=== PATIENT | male | born 1955 | race Caucasian/White ===

== ENCOUNTER 2021-08-25 19:32 | Emergency (ER) | payer MEDICARE, SELFPAY ==
[2021-08-25 19:44] VITALS: BP 128/83; PULSE 80; RESP 16; TEMP 36.6; O2SAT 100
--- NOTE | 2021-08-25 20:54 | ED.SKABFB ---
HPI - Skin/Abscess/Foreign Bdy General Chief complaint: Skin/Abscess/Foreign Body Stated complaint: Rash Source: patient and RN notes reviewed Limitations: no limitations History of Present Illness HPI narrative: The patient, who is on several medications, presents with skin eruption. Patient states he was doing yard work about a week ago and has developed a pink, itchy, occasionally weeping rash on extremities . Symptoms are mild, unrelieved with OTC preparations; he requests steroid injection, so explained oral bioavailability is similar. Related Data Home Medications Medication Instructions Recorded Confirmed albuterol sulfate INHALATION 08/25/21 allopurinol 08/25/21 clopidogrel 08/25/21 colchicine mg 08/25/21 gabapentin 08/25/21 lisinopril 08/25/21 tramadol mg 08/25/21 umeclidinium [Incruse Ellipta] INHALATION 08/25/21 Allergies Allergy/AdvReac Type Severity Reaction Status Date / Time No Known Allergies Allergy Verified 08/25/21 20:15 Review of Systems Review of Systems: General/Constitutional: No weight loss,fever Eyes: N0: Redness,discharge Ears/Nose/Throat: No: Epistaxis,ear discharge Respiratory: Denies: Hemoptysis Gastrointestinal: No Vomiting, Bleeding-rectal Skin: No Lumps, eruption Neurologic: No Focal Weakness,Sz Hematologic: Denies: Petechiae/Purpura Psychiatric: No: Suicida ideationl All Other Systems: Reviewed and Negative PMFSH Comments At time of signature, agree with nursing past medical, surgical, social and family history. There is no relevant family history pertinent to the presenting complaint Exam Narrative: General Appearance: Well nourished Head: Normocephalic Eye: PERRLA, Conjunctiva clear Ear: External ear normal Nose: Normal nose, Nare clear Mouth/Throat: Normal appearing Neck Exam: Supple Respiratory: Airway patent, No respiratory distress Musculoskeletal: Moves all extremities, Non tender Skin: Warm, Dry ;discrete/ demarcated areas of erythema , hyperpigmentation with occ broken vesicles Neurological: A&O x3 Psychiatric: Normal mood, Normal affect Course Vital Signs Vital signs: Vital Signs Temperature 97.9 F 08/25/21 19:44 Pulse Rate 80 08/25/21 19:44 Respiratory Rate 16 08/25/21 19:44 Blood Pressure 128/83 08/25/21 19:44 Pulse Oximetry 100 08/25/21 19:44 Temperature 97.9 F 08/25/21 19:44 Pulse Rate 80 08/25/21 19:44 Respiratory Rate 16 08/25/21 19:44 Blood Pressure 128/83 08/25/21 19:44 Pulse Oximetry 100 08/25/21 19:44 Discharge Plan Discharge Clinical Impression: Pruritic condition Contact dermatitis Qualifiers: Contact dermatitis type: unspecified Contact dermatitis trigger: unspecified trigger Qualified Code(s): L25.9 - Unspecified contact dermatitis, unspecified cause Patient Disposition: Home, Self-Care Condition: Stable Instructions: Contact Dermatitis (ED) Prescriptions: New prednisone 10 mg Tablets,Dose Pack See Taper mg PO DAILY 12 Days Qty: 42 RF: 0 No Action gabapentin 600 mg tablet RF: 0 clopidogrel 75 mg tablet RF: 0 tramadol 50 mg tablet RF: 0 lisinopril 10 mg tablet RF: 0 allopurinol 300 mg tablet RF: 0 albuterol sulfate 90 mcg/actuation HFA aerosol inhaler INHALATION RF: 0 colchicine 0.6 mg tablet RF: 0 Incruse Ellipta 62.5 mcg/actuation blister with device INHALATION RF: 0 Follow-up/Referrals: Celeste,Jenny Donato MD [Primary Care Provider] -
== END 2021-08-25 21:01 | disposition home or self-care (01) ==
PROVIDERS: Emergency Provider Emergency Medicine; PCP Family Medicine
DX: L25.9 Unspecified contact dermatitis, unspecified cause (principal); I10 Essential (primary) hypertension; J44.9 Chronic obstructive pulmonary disease, unspecified; I73.9 Peripheral vascular disease, unspecified; Z86.718 Personal history of other venous thrombosis and embolism
CPT/HCPCS: 99203; G0463